=== PATIENT | male | born 1970 | race Caucasian/White ===

== ENCOUNTER 2016-09-06 19:35 | Emergency (ER) | payer OTHER ==
[2016-09-06 19:40] VITALS: BP 175/115; PULSE 118; RESP 20; TEMP 98.2; O2SAT 95
--- NOTE | 2016-09-06 19:50 | EDPHY ---
H & P Stated Complaint: ETOH, Shaking Time Seen by Provider: 09/06/16 19:47 - Personal History Current Tetanus Diphtheria and Acellular Pertussis (TDAP): Yes - Medical/Surgical History Hx Asthma: No Hx Chronic Respiratory Disease: No Hx Diabetes: No Hx Cardiac Disease: No Hx Renal Disease: No Hx Cirrhosis: No Hx Alcoholism: No Hx HIV/AIDS: No Hx Splenectomy or Spleen Trauma: No Other PMH: alcoholism, bipolar - Social History Smoking Status: Current every day smoker Constitutional: Initial Vital Signs Temperature (C) 36.8 C 09/06/16 19:38 Heart Rate 118 H 09/06/16 19:38 Respiratory Rate 20 09/06/16 19:38 Blood Pressure 175/115 H 09/06/16 19:38 O2 Sat (%) 95 09/06/16 19:38 O2 Delivery Mode Room Air Allergies/Adverse Reactions: No Known Allergies Allergy (Unverified 09/06/16 19:38) Home Medications: Medication Instructions Recorded [place] [facility] 09/06/16 Medical Decision Making ED Course/Re-evaluation: CHIEF COMPLAINT: Alcohol relapse, shakiness. HISTORY OF PRESENT ILLNESS: The patient is a 46-year-old alcoholic male who presents for shakiness secondary and alcohol relapse. He was sober for 3 weeks but relapsed a few weeks ago. He has missed a week of work because of intoxication. He has been to rehab before. He does have a history of withdrawal seizures. His last drink was 30 minutes [employer]. He drinks 1.75 liters of whiskey per day. REVIEW OF SYSTEMS: A 10 point review of systems was performed and is negative with the exception of the elements mentioned in the history of present illness. PHYSICAL EXAM: General Appearance: Alert, appropriate, shaky. Head: Atraumatic without scalp tenderness or obvious injury Eyes: Pupils equal, round, reactive to light and accommodation, EOMI, no trauma , no injection. Ears: Clear bilaterally, no perforation, normal landmarks Nose: Atraumatic, no rhinorrhea, clear. Throat: There is no erythema or exudates, no lesions, normal tonsils, mucus membranes moist. Neck: Supple, 2+ carotid upstroke, nontender, no lymphadenopathy. Respiratory: No retractions, no distress, no wheezes, and no accessory muscle use. Lungs are clear to auscultation bilaterally. Cardiovascular: Regular rate and rhythm, no murmurs, rubs, or gallops. Bilateral carotid, radial, dorsalis pedis, and posterior tibial pulses intact. Good capillary refill all extremities. Gastrointestinal: Abdomen is soft, nontender, non-distended, no masses, no rebound, no guarding, no peritoneal signs. Musculoskeletal: Normal active ROM of all extremities, atraumatic. Neurological: Alert, appropriate, and interactive. The patient has normal DTRs and non-focal cranial nerves, motor, sensory, and cerebellar exam. Skin: No rashes, good turgor, no nodules on palpation. PAST MEDICAL HISTORY: Bipolar disorder. 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 [employer]-year-old male presents with shakiness secondary to relapsing on alcohol. He has been binging for the past few weeks after being sober for 3 months. He is seeking help to get back to work tomorrow. I discussed the options with the patient and recommended treatment at the [facility]. He is going to talk it over with his . 2mg PO Ativan administered in the meantime. Patient's CIWA 2028: Patient is willing to go to the [facility] for treatment. He has been given Librium pre-pack prior to transfer. His will drive him. - Data Points Medications Given: Discontinued Medications Lorazepam (Ativan) 2 mg PO EDNOW ONE Stop: 09/06/16 20:01 Last Admin: 09/06/16 20:09 Dose: 2 mg Departure - Departure Disposition: Home, Routine, Self-Care Clinical Impression: Alcohol abuse Condition: Good Instructions: Chlordiazepoxide/Clidinium (By mouth), Abuse of Alcohol (ED) Additional Instructions: Take Librium as instructed. Follow up at the [facility] as discussed. Return for any serious worsening of condition. Referrals: [facility] [Outside] - As per Instructions Report Scribed for: Renato Sanders Report Scribed by: Dar Betancur Date of Report: 09/06/16 Time of Report: 19:57
[2016-09-06] MEDS ORDERED: LORazepam 1 MG TAB PO ONE (20:00)
[2016-09-06] MEDS ORDERED: CHLORDIAZEPOXIDE 25MG PREPK#6 BTL TAKEHOME ONE (20:28)
== END 2016-09-06 20:37 | disposition home or self-care (01) ==
DX: F10.10 Alcohol abuse, uncomplicated (principal); F17.200 Nicotine dependence, unspecified, uncomplicated